=== PATIENT | female | born 1970 | race Caucasian/White ===

== ENCOUNTER → 2017-11-28 | Outpatient (CLI) | payer OTHER ==
--- NOTE | 2017-11-29 08:43 | MR ---
EXAMINATION TYPE: MR brain wo/w con DATE OF EXAM: 11/28/2017 COMPARISON: NONE HISTORY: Low Back Pain, MS Gadaovist TECHNIQUE: Multiplanar, multisequence images of the brain and brainstem is performed without and with IV contras t, utilizing 7.5 mL intravenous Gadavist . FINDINGS: Diffusion weighted images demonstrate no evidence of a recent infarct or other diffusion ab normality. There is no extra-axial fluid collection. Few scattered subcortical and periventricular white matter changes that are T2/IR hyperintense puncta te foci are seen within both supratentorial hemispheres. No infratentorial or spinal cord foci. There are at least 5 foci on the right and 3 foci on the left the largest on the right in the periventricu lar white matter in the frontal lobe measuring 4 mm on IR fat sat axial image 17 and the largest on t he left measuring 4 mm on image 17 as well in the left parietal lobe. The ventricular system and cis ternal spaces are normal in size and appearance. The brain volume is age appropriate. Midline structures demonstrate normal morphology. Incidental note is made of a small 3 mm pineal glan d cyst The craniocervical junction appears within normal limits. Post contrast images demonstrate n o abnormal enhancement. The dural venous sinuses appear patent. The visualized sinuses are clear and the globes are intact. No gross evidence of optic nerve enhancement. Although the major intracranial flow voids are maintained the basilar and right vertebral arteries are noted to be diminutive in lisa leidy. IMPRESSION: 1. Mild burden nonspecific white matter changes. These may represent demyelinating plaques is free of multiple sclerosis. No restricted diffusion or enhancement to indicate active demyelination. 2. Diminutive caliber of the basilar and right vertebral arteries, possibly congenital.
--- NOTE | 2017-11-29 08:51 | MR ---
EXAMINATION TYPE: MR lumbar spine wo con DATE OF EXAM: 11/28/2017 COMPARISON: NONE HISTORY: Low Back Pain, MS Gadaovist 7.5 TECHNIQUE: Multiplanar, multisequence images of the lumbar spine were acquired. The vertebral bodies of the lumbar spine maintain normal alignment and vertebral body heights. Bone m arrow signal is within normal limits. Conus medullary is has a normal appearance terminating at L1. P araspinal musculature is unremarkable. L1-L2: Normal disc appearance without desiccation. No herniation, protrusion or disc bulging. No ca nal stenosis is present. Foramina are patent bilaterally. L2-L3: There is a small broad-based disc bulge. No herniation, protrusion or disc bulging. No canal stenosis is present. Foramina are patent bilaterally. L3-L4: There is a small broad-based disc bulge. No herniation, protrusion or disc bulging. No canal stenosis is present. Foramina are patent bilaterally. L4-L5: A very small central disc protrusion/herniation superimposed upon a broad-based disc bulge wit h punctate right paracentral annular tear. No neural foraminal narrowing or spinal canal stenosis as a result. L5-S1: Normal disc appearance without desiccation. No herniation, protrusion or disc bulging. No ca nal stenosis is present. Foramina are patent bilaterally. IMPRESSION: 1. Very small central disc herniation superimposed on a broad-based disc bulge at L4-L5 without neura l foraminal narrowing or spinal canal stenosis. 2. Small broad-based disc bulges at L2-L4 without spinal canal stenosis or neural foraminal narrowing .
== END ==
LOC: RADMRIMAIN 20:10
PROVIDERS: ATTEND Psychiatry & Neurology Neurology
DX: M51.26 Other intervertebral disc displacement, lumbar region (principal); R90.89 Other abnormal findings on diagnostic imaging of central nervous system
CPT/HCPCS: 70553; 72148; A9581

== ENCOUNTER → 2017-12-01 | Outpatient (CLI) | payer OTHER ==
[2017-12-01 17:39] LABS: Basophils # (A) 0.1 k/uL (0-0.2); Basophils % (A) 1 %; Eosinophils # (A) 0.1 k/uL (0-0.7); Eosinophils % (A) 1 %; HCT 41.4 % (34.0-46.0); HGB 13.5 gm/dL (11.4-16.0); Lymphocytes # (A) 3.8 k/uL (1.0-4.8); Lymphocytes % (A) 37 %; MCH 30.2 pg (25.0-35.0); MCHC 32.6 g/dL (31.0-37.0); MCV 92.6 fL (80.0-100.0); Mean Platelet Volume 6.7; Monocytes # (A) 0.5 k/uL (0-1.0); Monocytes % (A) 5 %; Neutrophils # (A) 5.6 k/uL (1.3-7.7); Neutrophils % (A) 55 %; Platelet Count 395 k/uL (150-450); RBC 4.47 m/uL (3.80-5.40); RDW 12.9 % (11.5-15.5); WBC 10.2 k/uL (3.8-10.6)
[2017-12-01 17:48] LABS: ALT 27 U/L (9-52); AST 20 U/L (14-36); Albumin 4.5 g/dL (3.5-5.0); Alkaline Phosphatase 73 U/L (38-126); Anion Gap 10 mmol/L; Blood Urea Nitrogen 15 mg/dL (7-17); Calcium 9.7 mg/dL (8.4-10.2); Carbon Dioxide 29 mmol/L (22-30); Chloride 103 mmol/L (98-107); Glucose 111 mg/dL (74-99); Potassium 4.3 mmol/L (3.5-5.1); Sodium 142 mmol/L (137-145); Total Bilirubin 0.2 mg/dL (0.2-1.3); Total Protein 6.9 g/dL (6.3-8.2)
[2017-12-02 00:58] LABS: Rheumatoid Factor 7 IU/mL (0-15)
[2017-12-02 01:02] LABS: Vitamin D 25 Hydroxy 28.4 ng/mL (30.0-100.0)
== END | disposition home or self-care (01) ==
LOC: LABWHC1 16:37
PROVIDERS: ATTEND Nurse Practitioner Acute Care
DX: E55.9 Vitamin D deficiency, unspecified (principal); M35.3 Polymyalgia rheumatica; R41.3 Other amnesia
CPT/HCPCS: 36415; 80053; 82306; 82607; 85025; 86038; 86431

== ENCOUNTER → 2017-12-06 | Outpatient (CLI) | payer OTHER ==
[2017-12-08 13:38] LABS: IgG - CSF 2.8 mg/dL (0.0 - 3.4); IgG Synthesis Rate 4.61 mg/day (0.00 - 3.00); IgG/Albumin Index (CSF) 0.89 (0.00 - 0.77); Immunoglobulin G 631 mg/dL (700 - 1600)
== END | disposition home or self-care (01) ==
LOC: LABWHC1 15:21
PROVIDERS: ATTEND Psychiatry & Neurology Neurology
DX: R90.82 White matter disease, unspecified (principal)
CPT/HCPCS: 36415; 82040; 82042; 82784; 83873; 83916; 84157; 87476; 88108; 89050

== ENCOUNTER → 2018-04-04 | Outpatient (CLI) | payer OTHER | END | disposition home or self-care (01) | LOC: LABWHC1 14:33 | PROVIDERS: ATTEND Nurse Practitioner Acute Care | DX: G35 Multiple sclerosis (principal) | CPT/HCPCS: 36415; 86787 ==

== ENCOUNTER → 2018-05-22 | Outpatient (CLI) | payer OTHER ==
--- NOTE | 2018-05-22 13:38 | MR ---
EXAMINATION TYPE: MR brain wo/w con DATE OF EXAM: 05/22/2018 COMPARISON: 11/28/2017 HISTORY: MS TECHNIQUE: Multiplanar, multisequence images of the brain and brainstem is performed without and with IV contras t, utilizing 7.5 mL intravenous Gadavist . FINDINGS: Diffusion weighted images demonstrate no evidence of a recent infarct or other diffusion ab normality. There is no extra-axial fluid collection or significant white matter signal abnormality. The ventricular system and cisternal spaces are normal in size and appearance. The brain volume is age appropriate. Midline structures demonstrate normal morphology. Cerebellar tonsils are low-lying in position measur ing approximately 1 mm below the foramen magnum. Incidental note is made of a stable pineal gland cys t measuring 3 mm.. Post contrast images demonstrate no abnormal enhancement. The dural venous sinuse s appear patent. Changes of chronic sinusitis noted. White matter: There are approximately 7-10 focal areas of abnormal signal within the white matter scattered bilater ally. All measure less than 5 mm. Additional confluent ill-defined periventricular abnormal signal is stable. No callosal lesions. No lesions perpendicular to the ventricular system. No enhancing lesions. IMPRESSION: 1. Stable nonspecific white matter changes. No interval change in size, number or morphology of the l esions. No enhancing lesions.
== END | disposition home or self-care (01) ==
LOC: RADMRIMAIN 11:59
PROVIDERS: ATTEND Psychiatry & Neurology Neurology
DX: R90.82 White matter disease, unspecified (principal); G35 Multiple sclerosis; Z88.2 Allergy status to sulfonamides
CPT/HCPCS: 70553; A9581

== ENCOUNTER → 2018-08-30 | Outpatient (CLI) | payer OTHER ==
[2018-08-30 16:15] LABS: Basophils % (A) 0 %; Eosinophils # (A) 0.1 k/uL (0-0.7); Eosinophils % (A) 1 %; HCT 38.2 % (34.0-46.0); HGB 12.7 gm/dL (11.4-16.0); Lymphocytes # (A) 0.5 k/uL (1.0-4.8); Lymphocytes % (A) 8 %; MCH 31.4 pg (25.0-35.0); MCHC 33.2 g/dL (31.0-37.0); MCV 94.5 fL (80.0-100.0); Monocytes # (A) 0.5 k/uL (0-1.0); Monocytes % (A) 7 %; Neutrophils % (A) 81 %; Platelet Count 272 k/uL (150-450); RBC 4.04 m/uL (3.80-5.40); RDW 13.5 % (11.5-15.5); WBC 6.1 k/uL (3.8-10.6)
[2018-08-30 16:34] LABS: ALT 24 U/L (9-52); AST 21 U/L (14-36); Albumin 4.6 g/dL (3.5-5.0); Alkaline Phosphatase 81 U/L (38-126); Anion Gap 7 mmol/L; Blood Urea Nitrogen 10 mg/dL (7-17); Carbon Dioxide 24 mmol/L (22-30); Chloride 110 mmol/L (98-107); Glucose 97 mg/dL (74-99); Potassium 4.3 mmol/L (3.5-5.1); Sodium 141 mmol/L (137-145); Total Bilirubin 0.4 mg/dL (0.2-1.3); Total Protein 7.1 g/dL (6.3-8.2)
== END ==
LOC: LABWHC1 14:48
PROVIDERS: ATTEND Nurse Practitioner Acute Care
DX: E55.9 Vitamin D deficiency, unspecified (principal); G35 Multiple sclerosis; Z51.81 Encounter for therapeutic drug level monitoring
CPT/HCPCS: 36415; 80053; 82306; 85025

== ENCOUNTER → 2018-09-22 | Outpatient (CLI) | payer OTHER ==
[2018-09-22 15:59] LABS: Basophils % (A) 0 %; Eosinophils # (A) 0.2 k/uL (0-0.7); Eosinophils % (A) 5 %; HGB 12.8 gm/dL (11.4-16.0); Lymphocytes # (A) 0.4 k/uL (1.0-4.8); Lymphocytes % (A) 9 %; MCH 30.8 pg (25.0-35.0); MCHC 32.1 g/dL (31.0-37.0); MCV 95.9 fL (80.0-100.0); Mean Platelet Volume 6.5; Monocytes # (A) 0.5 k/uL (0-1.0); Monocytes % (A) 12 %; Neutrophils # (A) 2.9 k/uL (1.3-7.7); Neutrophils % (A) 70 %; Platelet Count 295 k/uL (150-450); RBC 4.17 m/uL (3.80-5.40); RDW 13.2 % (11.5-15.5); WBC 4.1 k/uL (3.8-10.6)
== END ==
LOC: LABWHC1 09:37
PROVIDERS: ATTEND Nurse Practitioner Acute Care
DX: Z51.81 Encounter for therapeutic drug level monitoring (principal); G35 Multiple sclerosis
CPT/HCPCS: 36415; 85025

== ENCOUNTER → 2018-10-16 | Outpatient (CLI) | payer OTHER ==
[2018-10-16 14:34] LABS: Basophils % (A) 0 %; Eosinophils # (A) 0.2 k/uL (0-0.7); Eosinophils % (A) 2 %; HCT 38.5 % (34.0-46.0); HGB 12.8 gm/dL (11.4-16.0); Lymphocytes # (A) 1.7 k/uL (1.0-4.8); Lymphocytes % (A) 24 %; MCH 31.1 pg (25.0-35.0); MCHC 33.3 g/dL (31.0-37.0); MCV 93.4 fL (80.0-100.0); Mean Platelet Volume 6.7; Monocytes # (A) 0.5 k/uL (0-1.0); Monocytes % (A) 8 %; Neutrophils # (A) 4.7 k/uL (1.3-7.7); Neutrophils % (A) 64 %; Platelet Count 293 k/uL (150-450); RBC 4.12 m/uL (3.80-5.40); RDW 12.8 % (11.5-15.5); WBC 7.3 k/uL (3.8-10.6)
== END | disposition home or self-care (01) ==
LOC: LABWHC1 13:51
PROVIDERS: ATTEND Nurse Practitioner Acute Care
DX: G35 Multiple sclerosis (principal)
CPT/HCPCS: 36415; 85025

== ENCOUNTER → 2018-11-30 | Outpatient (CLI) | payer OTHER ==
[2018-11-30 15:55] VITALS: BP 121/83; PULSE 80; RESP 18; TEMP 97.6; BMI 30.1
--- NOTE | 2018-11-30 16:33 | P.GSHP ---
History of Present Illness H&P Date: 11/30/18 Chief Complaint: breast cyst right Patient is a 48 year old white female diagnosed with multiple sclerosis 1 year ago. She was started on Gilenya which comprimised her immune system and this was stopped in September. The patient 1 week later developed bilateral eye styes. She also noted swelling in her right axilla. She has been treated with 4 courses of antibiotics. Keflex times two, augmentin, than a Z-parag wich she is taking now She also has swelling in her right suproclavicular area. She had two breast ultrasounds which showed right breast cyst. The ultrasound was done in October 2018, that ultrasound showed cyst, she than had a repeat ultrasound done at [facility] we are waiting for these results. She feels that the right axilla is more swollen than the left axilla. The patient is masses in her breast. She has no nipple discharge in her breast. She has not had any history of trauma or infection in her breast. She complains mostly of a sensation of swelling in the right axilla. The patient does smoke 1 pack per day. The patient is exposed to secondhand smoke via her fianc and her mother. The patient takes between 2-6 12 oz glasses of caffeniated beverages per day. She eats very little chocolate. Family history: 1. Mother: Skin cancer 2. Maternal grandmother: Leukemia 3. Maternal grandfather: Lung cancer 4. Paternal grandfather: Prostate cancer Hormonal History: menarche: 14 : 2, 2 children, breast fed: no, first born at 24 menopause: hysterectomy at 34 done for pre-cancer cells, still has ovaries BCP: 3 years hormones: none Past surgical history: 1. Hysterectomy 2. Cholecystectomy 3. Lasix eyes 4. Tonsils and adenoids 5. [place] teeth Medical history: 1. Multiple sclerosis 2. Immune compromise 3. Back pain 4. Questionable fibromyalgia Social history: Smoking: A pack per day for 30 years Alcohol: Occasional Drugs:negative - Constitutional Constitutional: Reports sweats, Denies chills, Denies fever - EENT Comment: eye styes Eyes: denies blurred vision, denies pain Ears: deny: decreased hearing, tinnitus Ears, nose, mouth and throat: Denies headache, Denies sore throat - Breasts Breasts: bilateral: as per HPI - Cardiovascular Cardiovascular: Reports shortness of breath, Denies chest pain - Respiratory Respiratory: Reports cough - Gastrointestinal Gastrointestinal: Denies abdominal pain, Denies diarrhea, Denies nausea, Denies vomiting - Genitourinary (Female) Genitourinary: Denies dysuria, Denies hematuria - Menstruation Menstruation: Reports post hysterectomy - Musculoskeletal Musculoskeletal: Reports myalgias - Integumentary Integumentary: Denies pruritus, Denies rash - Neurological Neurological: Reports numbness, Reports weakness - Psychiatric Comment: panic attacks Psychiatric: Reports anxiety, Reports depression - Endocrine Comment: gain 30 pounds Endocrine: Reports fatigue, Reports weight change - Hematologic/Lymphatic Comment: none - Allergic/Immunologic Allergic/Immunologic: Reports seasonal allergies Past Medical History Past Medical History: GERD/Reflux Additional Past Medical History / Comment(s): INTERMITTENT ABD PAIN INCREASED PAIN AFTER EATING WITH N/V,CONSTIPATION,ABRASION TO LT ELBOW AND LT KNEE,HX BACK PAIN-N/T TO DEWEY FINGERS AND LEGS,SOB,LT EYE DILATES MORE THAN RT EYE. MS History of Any Multi-Drug Resistant Organisms: None Reported Past Surgical History: Breast Surgery, Hysterectomy, Tonsillectomy Additional Past Surgical History / Comment(s): BREAST BX,LASIK DEWEY EYES Past Anesthesia/Blood Transfusion Reactions: No Reported Reaction Additional Psychological History / Comment(s): CLAUSTROPHOBIC Smoking Status: Current every day smoker Past Alcohol Use History: None Reported Additional Past Alcohol Use History / Comment(s): STARTED SMOKING AT AGE 17,1PPD Past Drug Use History: None Reported - Past Family History Mother Family Medical History: Cancer Additional Family Medical History / Comment(s): SKIN Father Additional Family Medical History / Comment(s): AT AGE 44 IN MVA Medications and Allergies Home Medications Medication Instructions Recorded Confirmed Type Celecoxib [CeleBREX] 200 mg PO BID PRN 10/11/16 10/13/16 History Cyclobenzaprine [Flexeril] 10 mg PO TID PRN 10/11/16 10/13/16 History HYDROcodone/APAP 10-325MG [[place] 1 tab PO Q6H PRN 10/11/16 10/13/16 History 10-325] Methocarbamol [Robaxin] 750 mg PO TID PRN 10/11/16 10/13/16 History Polyethylene Glycol 3350 [Miralax] 17 gm PO DAILY PRN 10/11/16 10/13/16 History Pregabalin [Lyrica] 150 mg PO HS PRN 10/11/16 10/13/16 History Pregabalin [Lyrica] 150 mg PO QAM 10/11/16 10/13/16 History Ranitidine HCl [Zantac] 150 mg PO BID PRN 10/11/16 10/13/16 History HYDROcodone/APAP 7.5-325MG [[place] 1 each PO Q4H PRN #60 tab 10/13/16 Rx 7.5] Allergies Allergy/AdvReac Type Severity Reaction Status Date / Time adhesive tape Allergy BLISTERS Verified 10/11/16 13:25 SKIN bacitracin Allergy BLISTERS Verified 10/11/16 13:25 [From Neosporin SKIN ([id number])] neomycin Allergy BLISTERS Verified 10/11/16 13:25 [From Neosporin SKIN ([id number])] polymyxin B Allergy BLISTERS Verified 10/11/16 13:25 [From Neosporin SKIN ([id number])] venom-honey bee Allergy Anaphylaxis Verified 10/11/16 13:25 [bee venom (honey bee)] Surgical - Exam Vital Signs Temp Pulse Resp BP Pulse Ox 97.6 F 80 18 121/83 98 11/30/18 15:44 11/30/18 15:44 11/30/18 15:44 11/30/18 15:44 11/30/18 15:44 BMI 30.1 - General well developed, well nourished, no distress - Eyes normal ocular movement - ENT normal pinna, no hearing loss - Neck no masses, trachea midline - Respiratory normal respiratory effort, clear to auscultation - Cardiovascular Rhythm: regular Heart Sounds: normal: S1, S2 - Abdomen Abdomen: soft - Integumentary skin lesion mid back near bra line - Neurologic no disoriented, no combative - Musculoskeletal normal gait - Psychiatric oriented to time, oriented to person, oriented to place, speech is normal, memory intact Breast examination: Right breast: Multi-positional exam no dominant masses or nodules of concern, right breast is slightly larger than left breast Right axilla: No discrete adenopathy of concern Left breast: Multi-positional exam no dominant masses or nodules of concern Left axilla: No adenopathy of concern Results Results of right breast ultrasound and right axillary ultrasound reviewed Bilateral mammogram from June 2018 results pending Assessment and Plan Assessment: Impression: 1. Fibrocystic breast changes 2. No discrete abnormality in the axilla noted 3. Skin lesion at near bra line of the torso 4. Possible sclerosis 5. Back pain Plan: 1. Obtain results of mammogram from June 2018 2. Close surveillance of axilla and breast with repeat examination in 3-4 months 3. Excision of skin lesion posterior torso at bra line CC: Dr. Hein
== END ==
LOC: WWCWWP 15:08
PROVIDERS: ATTEND Surgery
DX: Z53.9 Procedure and treatment not carried out, unspecified reason (principal)

== ENCOUNTER → 2018-12-14 | Outpatient (CLI) | payer OTHER ==
[2018-12-14 11:02] VITALS: BP 135/85; PULSE 89; RESP 18; TEMP 97.4; BMI 30.9
--- NOTE | 2018-12-14 11:21 | P.PN ---
Subjective Progress Note Date: 12/14/18 Ping is a 48 year old white female with a complaint of asymmetry of her right breast. She has had bilateral mammograms which were felt to be benign in June 2018, and recently on November 30 and axillary ultrasound on the right which was felt to be benign. She does still complain of some fullness under the breast extending around to her back. She has noted that she has gained approximately 5-10 pounds in the last several months. Objective - Vital Signs Vital signs: Vital Signs Temp 97.4 F L 12/14/18 10:56 Pulse 89 12/14/18 10:56 Resp 18 12/14/18 10:56 BP 135/85 12/14/18 10:56 Pulse Ox 99 12/14/18 10:56 Intake & Output 12/13/18 12/14/18 12/14/18 18:59 06:59 18:59 Weight 79.379 kg - Constitutional General appearance: Present: obese - EENT Eyes: Present: EOMI ENT: Present: hearing grossly normal - Neck Neck: Present: normal ROM - Respiratory Respiratory: bilateral: CTA - Cardiovascular Rhythm: regular Heart sounds: normal: S1, S2 - Integumentary Integumentary Comment(s): The patient on examination her right breast is slightly larger than the left breast. In addition the soft tissues under the right breast are slightly more prominent than on the left side and extending posteriorly towards her back. No discrete dominant mass or nodule is palpated. No adenopathy of concern is noted in the right or left axilla Recent breast exam did not reveal any lesions of concern in either breast Assessment and Plan Assessment: Impression: 1. Asymmetric breast, right larger than left 2. Prominent soft tissue in the lateral aspect of the chest wall extending posteriorly which appears to be non-worrisome 3. Multiple Sclerosis 4. Arthritis in her lower back/SI joint pain 5. Dark nevus back Plan: 1. Close surveillance with repeat position exam in 3 months time 2. Excision of dark nevus per primary care doctor 3. Medical management of medical conditions Discussion with the patient regarding the fact that she has had weight change, her breasts are asymmetric, and she has some postural changes which may make the lateral right chest wall tissues seem more prominent than the left. At this time there does not appear to be anything worrisome which would warrant an interventional biopsy. We've discussed possibility of a CAT scan but would prefer not to have radiation exposure. She is therefore going to follow this closely if anything changes she will call me immediately and I will see her again in 3 months time. Cc: Dr. Hein
== END ==
LOC: WWCWWP 10:07
PROVIDERS: ATTEND Surgery
DX: Z53.9 Procedure and treatment not carried out, unspecified reason (principal)

== ENCOUNTER → 2019-03-15 | Outpatient (CLI) | payer OTHER ==
[2019-03-15 14:24] VITALS: BP 118/66; PULSE 79; RESP 16; TEMP 96.6; BMI 31.8
--- NOTE | 2019-03-15 14:59 | P.PN ---
Subjective Progress Note Date: 03/15/19 Principal diagnosis: breast tenderness The patient is a 48-year-old white female diagnosed with multiple sclerosis approximately a year and a half ago. She was started on Gilenya which compromised her immune system and this subsequently was stopped in September 2018. The patient 1 week later developed bilateral iced eyes. She also noticed swelling in her right axilla. She had been treated with 4 courses of antibiotics. She was treated with Keflex 2, Augmentin, and then a Z-Ean which did not cause resolution of the swelling or pain. It did help with the stys in her eyes but did not help with the swelling in her axilla. She had 2 breast ultrasounds which showed only right breast cyst. The most recent radiographs were June 2018. This was a bilateral mammogram which was felt to be benign. She then had ultrasounds performed, the last ultrasound was of her right axilla and was sent in November 2018. No discrete solid or cystic areas were identified. The swelling has not increased since she was last seen. The area is tender with palpation but otherwise is not tender. The patient is not complaining of any masses or lumps in her breasts. She has no nipple discharge or skin changes of concern. The patient smokes 1 pack per day. She is also exposed to secondhand smoke via her fianc and her mother. She drinks 1-3 cups of coffee per day. She has decreased her pop intake from 3-6 glasses per day to 1-2 glasses per week. She does not large quantities of chocolate. She has not noted any difference in cutting down on caffeine in the breast pain. Family History: 1. Mother: Skin cancer 2. Maternal grandmother: Leukemia 3. Maternal grandfather: Lung cancer 4. Paternal grandfather: Prostate cancer Hormonal history: Menarche: 14 Pregnancies: 2, 2 children, breast-fed, negative first child born at 24 No pus: Hysterectomy at 32 to done for precancerous cells still has ovaries control pills 15 years Hormones: Negative Past surgical history: 1. Hysterectomy 2. Cholecystectomy 3. LASIK eye surgery 4. Tonsils and adenoids 5. [place] teeth Medical history: 1. Multiple sclerosis 2. Immune compromise 3. Back pain 4. Questionable fibromyalgia Social history: Smoke: 1 pack per day for 30 years Alcohol: Occasional Drugs: Negative Review of systems: HEENT recent cystitis in her eyes Lungs: Smoker Heart: Negative GI: Reflux : Status post hysterectomy for precancerous cells Musculoskeletal: Myalgias Recent diagnosis of multiple sclerosis Hematologic: none Objective - Vital Signs Vital signs: Vital Signs Temp 96.6 F L 03/15/19 14:18 Pulse 79 03/15/19 14:18 Resp 16 03/15/19 14:18 BP 118/66 03/15/19 14:18 Pulse Ox 96 03/15/19 14:18 Intake & Output 03/14/19 03/15/19 03/15/19 18:59 06:59 18:59 Weight 81.647 kg - Exam BMI 31.9 - Constitutional General appearance: Present: obese - EENT Eyes: Present: EOMI ENT: Present: hearing grossly normal - Neck Neck: Present: normal ROM - Respiratory Respiratory: bilateral: CTA - Cardiovascular Rhythm: regular Heart sounds: normal: S1, S2 - Gastrointestinal General gastrointestinal: Present: soft - Integumentary Integumentary: Present: normal turgor - Musculoskeletal Musculoskeletal: Present: gait normal - Psychiatric Psychiatric: Present: A&O x's 3, appropriate affect, intact judgment & insight - Additional findings Additional findings: breast exam: right breast: Multi-positional exam no dominant masses or nodules of concern, there is tenderness to palpation behind the right nipple areolar complex, the right breast is asymmetric and slightly larger than the left breast with some increased right axillary breast tissue as well Right axilla: No adenopathy of concern Left breast: Multi-positional exam fibrocystic changes, no dominant masses or nodules of concern Left axilla: No adenopathy of concern - Imaging and Cardiology The patient's mammogram from June and her most recent ultrasound which was from November 2018 were reviewed Assessment and Plan Assessment: Impression: 1. Fibrocystic breast changes 2. Skin lesion near her bra line was removed by Dr. Hein 3. Multiple sclerosis 4. Back pain/SI joint pain 5. Pain right axillary area 6. Patient is perimenopausal Plan: 1. Patient is getting an MRI related to her back pain march, to see if it can also do an MRI of the right axillary area to look at the muscles in this region and chest wall/ 2. We have again discussed stopping caffeinated beverages and nicotine the patient will consider that she has done well with decreasing the amount of caffeinated beverages she drinks 3. [place] oil 4. breast pain may be related to hormonal changes CC: Dr. Hein Repeat bilateral mammogram in June with physician exam at that time.
== END ==
LOC: WWCWWP 13:52
PROVIDERS: ATTEND Surgery
DX: Z53.9 Procedure and treatment not carried out, unspecified reason (principal)

== ENCOUNTER → 2019-03-22 | Outpatient (CLI) | payer OTHER ==
--- NOTE | 2019-03-22 14:40 | MR ---
EXAMINATION TYPE: MR lumbar spine wo con DATE OF EXAM: 03/22/2019 COMPARISON: None HISTORY: Low Back Pain TECHNIQUE: Multiplanar, multisequence images of the lumbar spine were acquired. TECHNIQUE: Multilevel disc desiccation is seen. Bone marrow signal is within normal limits. Vertebral body heights and alignment are maintained of the lumbar spine. Conus medullaris is unremarkable term inating at L1. No paraspinal masses seen. Mild atrophy of the left paraspinal muscles at L5-S1. Small synovial cyst of the right L5 facet. L1-L2: Disc desiccation is seen without focal disc herniation. No spinal canal stenosis or neural for aminal narrowing. L2-L3: There is a small broad-based disc bulge without spinal canal stenosis nor neural foraminal kathia rowing. L3-L4: There is a small broad-based disc bulge and mild facet arthropathy without spinal canal stenos is nor neural foraminal narrowing. L4-L5: There is facet arthropathy and ligamentum flavum buckling as well as a broad-based disc bulge resulting in bilateral neural foraminal narrowing without spinal canal stenosis. L5-S1: There is a broad-based disc bulge and mild facet arthropathy without spinal canal stenosis nor neural foraminal narrowing. IMPRESSION: 1. No evidence of vertebral body height loss or malalignment of the lumbar spine. 2. Mild multilevel degenerative disc disease of the lumbar spine resulting in mild bilateral neural f oraminal narrowing at L4-5. No focal disc herniation or spinal canal stenosis. 3. Mild paraspinal atrophy on the left at L5-S1.
== END ==
LOC: RADMRIMAIN 12:57
PROVIDERS: ATTEND Anesthesiology Pain Medicine
DX: M48.061 Spinal stenosis, lumbar region without neurogenic claudication (principal); M51.36 Other intervertebral disc degeneration, lumbar region; M48.8X7 Other specified spondylopathies, lumbosacral region
CPT/HCPCS: 72148

== ENCOUNTER → 2019-04-23 | Outpatient (CLI) | payer OTHER ==
[2019-04-23 16:15] LABS: Basophils % (A) 0 %; Eosinophils # (A) 0.2 k/uL (0-0.7); Eosinophils % (A) 3 %; HCT 40.8 % (34.0-46.0); HGB 13.2 gm/dL (11.4-16.0); Lymphocytes # (A) 3.1 k/uL (1.0-4.8); Lymphocytes % (A) 34 %; MCH 28.9 pg (25.0-35.0); MCHC 32.2 g/dL (31.0-37.0); MCV 89.7 fL (80.0-100.0); Mean Platelet Volume 7.1; Monocytes # (A) 0.5 k/uL (0-1.0); Monocytes % (A) 6 %; Neutrophils # (A) 4.8 k/uL (1.3-7.7); Neutrophils % (A) 54 %; Platelet Count 314 k/uL (150-450); RBC 4.55 m/uL (3.80-5.40); RDW 14.1 % (11.5-15.5); WBC 8.9 k/uL (3.8-10.6)
[2019-04-24 01:32] LABS: Vitamin D 25 Hydroxy 24.1 ng/mL (30.0-100.0)
[2019-04-24 01:55] LABS: Hepatitis A Antibody IgM Non-Reactive (Non-Reactive); Hepatitis B Core IgM Non-Reactive (Non-Reactive)
[2019-04-24 02:07] LABS: Albumin/Globulin Ratio 2.94 (1.60-3.17); Anion Gap 6.8 mmol/L (4.00-12.00); Calcium 9.9 mg/dL (8.7-10.3); Carbon Dioxide 25.2 mmol/L (21.6-31.8); Globulin 1.7 g/dL (1.6-3.3); Potassium 4.4 mmol/L (3.5-5.5); Total Bilirubin 0.3 mg/dL (0.3-1.2); Total Protein 6.7 g/dL (6.2-8.2)
== END | disposition home or self-care (01) ==
LOC: LABWHC1 15:35
PROVIDERS: ATTEND Nurse Practitioner Acute Care
DX: G35 Multiple sclerosis (principal); E55.9 Vitamin D deficiency, unspecified
CPT/HCPCS: 36415; 80053; 80074; 82306; 85025; 86704

== ENCOUNTER → 2019-08-20 | Outpatient (CLI) | payer OTHER ==
--- NOTE | 2019-08-22 10:22 | MM ---
Reason for exam: screening (asymptomatic). Last mammogram was performed 1 year and 1 month ago. History: Family history of breast cancer in maternal cousin at age 62. Benign ultrasound-guided core biopsy of the left breast, 2005. Physical Findings: A clinical breast exam by your physician is recommended on an annual basis and results should be correlated with mammographic findings. MG Screening Mammo w CAD Bilateral CC and MLO view(s) were taken. Prior study comparison: July 20, 2018, mammogram, performed at [facility]. March 10, 2016, bilateral MG diagnostic mammo w CAD [facility]. September 11, 2015, mammogram, performed at [facility]. The breast tissue is heterogeneously dense. This may lower the sensitivity of mammography. Previous mammotome biopsy in the left breast. No significant changes when compared with prior studies. ASSESSMENT: Benign, BI-RAD 2 RECOMMENDATION: Routine screening mammogram of both breasts in 1 year.
== END | disposition home or self-care (01) ==
LOC: RADMAMWWP 13:05
PROVIDERS: ATTEND Internal Medicine
DX: Z12.31 Encounter for screening mammogram for malignant neoplasm of breast (principal)
CPT/HCPCS: 77067

== ENCOUNTER 2019-09-03 09:09 | Day surgery (SDC) | payer OTHER ==
[2019-08-30 10:46] VITALS: BMI 31.8
[~2019-09-03 09:09] MED LIST: LACTATED RINGERS 1,000 ML IV SCH; LIDOCAINE 1% 20 ML VIAL (10MG/ML) FOR IV START INTRADERMA PRN
[2019-09-03 09:37] VITALS: RESP 18; TEMP 98.1
[2019-09-03] MEDS ORDERED: PROPOFOL 10 MG/ML 20 ML VIAL IV ONE (09:43)
[2019-09-03] MEDS ORDERED: LIDOCAINE 1% INJ 10MG/ML (20 ML MDV) ONE (09:43)
[2019-09-03] MEDS ORDERED: MIDAZOLAM 2 MG/2 ML VIAL ONE (09:43)
--- NOTE | 2019-09-03 10:43 | P.PCN ---
Date of Procedure: 09/03/19 Description of Procedure: Brief history: Patient is a pleasant scheduled for an elective upper endoscopy as well as colonoscopy as a part of evaluation of epigastric pain and a change in bowel habits. No family history of colon cancer. Procedure performed: Esophagogastroduodenoscopy with biopsy Colonoscopy with polypectomy Estimated blood loss: Minimal. Preoperative diagnosis: Epigastric abdominal pain, change in bowel habits Anesthesia: MAC Procedure: After informed consent was obtained from the patient was brought into the endoscopy unit and IV sedation was administered by anesthesia under continuous monitoring. Initially upper endoscopy was done. The Olympus GF 190 video endo scope was inserted inserted into the mouth and esophagus intubated without any difficulty and was gradually advanced into the stomach and duodenum and carefully examined. The bulb and second part of the duodenum appeared normal, With biopsies taken. The scope was then withdrawn into the stomach adequately insufflated with air and upon careful examination the antrum and body, cardia and fundus appeared normal, Except for some mild scattered erythema in the antrum and body suggestive of mild gastritis with biopsies taken. The scope was then withdrawn into the esophagus. The GE junction was located at 38 cm to the incisors, with biopsies of the GE junction taken. It appeared regular with no erythema erosions or ulcerations. Rest of the esophagus appeared normal. Patient tolerated the procedure well. At this time the patient continued to remain sedation. Initial digital rectal examination was normal. Olympus CF 190 video colonoscope was then inserted into the rectum , however due to a tortuous sigmoid the scope was removed and replaced with a pediatric scope which was inserted into the rectum and gradually advanced to the cecum without any difficulty. Careful examination was performed as the scope was gradually being withdrawn. The prep was excellent. The cecum, ascending colon, transverse colon, descending colon, sigmoid colon and rectum appeared normal, Except for a diminutive sessile 2 mm sigmoid polyp removed with cold forcep polypectomy. Retroflexion was performed in the rectum and no lesions were noted, Low-grade internal hemorrhoids noted. Patient tolerated the procedure well. Impression: 1. Mild gastritis antrum and body, biopsied. Biopsies of the duodenum and GE junction. 2. Tortuous sigmoid colon, pediatric scope used to successfully reach the cecum. Diminutive 2 mm sigmoid polyp removed with cold forcep polypectomy. Otherwise normal-appearing colon from rectum to cecum. Recommendations: Findings of this examination were discussed with the patient as well as Her family. Await biopsy results. Anticipate repeat colonoscopy in 5-10 years pending pathology from polypectomy. Follow-up in gastroenterology clinic as previously scheduled, for the titration of medications.
[2019-09-03 11:01] VITALS: BP 123/75; PULSE 77
== END 2019-09-03 11:31 | disposition home or self-care (01) ==
LOC: ORWHC2ENDO 09:09
PROVIDERS: ATTEND Internal Medicine
DX: K20.9 Esophagitis, unspecified (principal); K63.5 Polyp of colon; K29.50 Unspecified chronic gastritis without bleeding; Q43.8 Other specified congenital malformations of intestine; K64.8 Other hemorrhoids; R11.2 Nausea with vomiting, unspecified; K59.00 Constipation, unspecified; K21.9 Gastro-esophageal reflux disease without esophagitis; G35 Multiple sclerosis; F17.200 Nicotine dependence, unspecified, uncomplicated; Z90.49 Acquired absence of other specified parts of digestive tract; Z90.710 Acquired absence of both cervix and uterus; Z79.891 Long term (current) use of opiate analgesic; Z79.899 Other long term (current) drug therapy; Z91.030 Bee allergy status; Z88.2 Allergy status to sulfonamides; Z88.8 Allergy status to other drugs, medicaments and biological substances; Z91.09 Other allergy status, other than to drugs and biological substances
CPT/HCPCS: 88305; 45380; 43239; J2250; J2001; J2704

== ENCOUNTER → 2020-04-08 | Outpatient (CLI) | payer OTHER ==
--- NOTE | 2020-04-08 14:57 | XR ---
EXAMINATION TYPE: XR wrist complete LT DATE OF EXAM: 04/08/2020 CLINICAL HISTORY: Pain after strain injury. TECHNIQUE: Frontal, lateral, and oblique images of the left wrist are obtained. COMPARISON: None FINDINGS: There is no acute fracture/dislocation evident in the left wrist. The joint spaces in the left wrist appear within normal limits. The overlying soft tissue appears unremarkable. IMPRESSION: There is no acute fracture or dislocation in the left wrist.
== END | disposition home or self-care (01) ==
LOC: RADXRYALE 14:42
PROVIDERS: ATTEND Internal Medicine
DX: M25.532 Pain in left wrist (principal)

== ENCOUNTER → 2020-09-03 | Outpatient (CLI) | payer OTHER ==
--- NOTE | 2020-09-03 14:47 | XR ---
EXAMINATION TYPE: XR chest 2V DATE OF EXAM: 09/03/2020 COMPARISON: NONE HISTORY: Chest pain TECHNIQUE: Frontal and lateral views of the chest are obtained. FINDINGS: There is no focal air space opacity. No evidence for pneumothorax. No pleural effusion. The cardiac silhouette size is within normal limits. The osseous structures are grossly intact. IMPRESSION: 1. No acute cardiopulmonary process.
== END | disposition home or self-care (01) ==
LOC: LABWHC1 14:04
PROVIDERS: ATTEND Internal Medicine
DX: R05 Cough (principal)
CPT/HCPCS: 71046; U0003; C9803

== ENCOUNTER → 2021-11-16 | Outpatient (CLI) | payer OTHER ==
--- NOTE | 2021-11-18 11:25 | MM ---
Reason for exam: screening (asymptomatic). Last mammogram was performed 2 years and 3 months ago. History: Benign ultrasound-guided core biopsy of the left breast, 2005. Physical Findings: A clinical breast exam by your physician is recommended on an annual basis and results should be correlated with mammographic findings. MG 3D Screening Mammo W/Cad Bilateral CC and MLO view(s) were taken. Prior study comparison: August 20, 2019, bilateral MG screening mammo w CAD. July 20, 2018, mammogram, performed at [facility]. There are scattered fibroglandular densities. Previous mammotome biopsy in the left breast. No significant changes when compared with prior studies. ASSESSMENT: Negative, BI-RAD 1 RECOMMENDATION: Routine screening mammogram of both breasts in 1 year.
== END | disposition home or self-care (01) ==
LOC: RADMAMWWP 15:15
PROVIDERS: ATTEND Internal Medicine
DX: Z12.31 Encounter for screening mammogram for malignant neoplasm of breast (principal)
CPT/HCPCS: 77063; 77067

== ENCOUNTER → 2023-03-24 | Outpatient (CLI) | payer OTHER ==
--- NOTE | 2023-03-24 11:45 | P.GSHP ---
History of Present Illness H&P Date: 03/24/23 Chief Complaint: abnormal left breast mammogram Ping is a 52 year old white female seen in consultation for Dr. Hein regarding a stero biopsy of the left breast. This was done on 3322 and revealed fibroadenoma/fibroadenomatoid hyperplasia with calcifications and background fibrocystic changes. This was felt to be benign specific. The x- rays were reviewed with radiology. she underwent a bilateral screening mammogram. This led to special views of the left breast and a diagnostic ultrasound of the right breast on 01-11-23. The ultrasound of the right breast did not show any specific lesions of concern, the mammogram of the left breast revealed calcifications of concern and a core biopsy was recommended. Stereotactic core biopsy was performed of the left breast on 01-21-23. The patient is complaining of right axillary fullness which has increased over the last several years. She is not complaining of pain in this area. She has not had any recent trauma or infection in this area. She has never had any open surgery on either of her breasts. She has had 2 stereotactic core biopsies on the left breast. These have all been benign. Caffeine: 2 cups coffee/day Nicotine: 1 PPD/ 35 years BCP: about 20 years chocolate: weekly Family history: Mother: Skin cancer Maternal grandmother: Leukemia Paternal grandfather: Lung cancer Paternal grandfather: Prostate cancer maternal aunt: melanoma Hormonal history: Menarche: 14 breast fed: Negative First child born at 24 Menopause: Hysterectomy at 34 done for precancerous cells still has her ovaries control pills: 3 years Hormones: Negative Surgical history: Hysterectomy Cholecystectomy Lasix enteritis Tonsil and adenoids With some teeth left breast core biopsy twice Medical history: Multiple sclerosis Immunocompromise Back pain Questionable fibromyalgia Social history: Smoking one pack per day > 30 years Alcohol: Occasional Drugs: Negative - Constitutional Constitutional: Denies chills, Denies fever - EENT Eyes: bilateral blurred vision Ears: deny: decreased hearing, tinnitus Ears, nose, mouth and throat: Reports headache - Breasts Breasts: bilateral: as per HPI - Cardiovascular Cardiovascular: Reports shortness of breath, Denies chest pain - Respiratory Respiratory: Denies cough, Denies 7 - Gastrointestinal Gastrointestinal: Reports constipation, Denies abdominal pain, Denies diarrhea, Denies nausea, Denies vomiting - Genitourinary (Female) Genitourinary: Denies dysuria, Denies hematuria - Menstruation Menstruation: Reports post hysterectomy - Musculoskeletal Musculoskeletal: Reports myalgias - Integumentary Integumentary: Denies pruritus, Denies rash - Neurological Neurological: Reports numbness, Reports weakness - Psychiatric Psychiatric: Reports anxiety, Reports depression - Endocrine Endocrine: Denies fatigue - Hematologic/Lymphatic Comment: none - Allergic/Immunologic Allergic/Immunologic: Reports seasonal allergies Past Medical History Past Medical History: GERD/Reflux, Musculoskeletal Disorder Additional Past Medical History / Comment(s): LT EYE DILATES MORE THAN RT EYE, MS. Constipation. HX Brain aneurysm. Chronic back pain History of Any Multi-Drug Resistant Organisms: None Reported Past Surgical History: Adenoidectomy, Breast Surgery, Cholecystectomy, Hysterectomy, Tonsillectomy Additional Past Surgical History / Comment(s): benign left BREAST BX, LASIK DEWEY EYES. Surgery for brain aneurysym Past Anesthesia/Blood Transfusion Reactions: No Reported Reaction Past Psychological History: Anxiety, Depression Additional Psychological History / Comment(s): CLAUSTROPHOBIC Smoking Status: Current every day smoker Past Alcohol Use History: Rare Additional Past Alcohol Use History / Comment(s): 1PPD since age 17 Past Drug Use History: None Reported Additional Drug Use History / Comment(s): CBD oil occasional, instructed to hold 24 hrs prior to procedure - Past Family History Mother Family Medical History: Cancer Additional Family Medical History / Comment(s): SKIN Father Additional Family Medical History / Comment(s): AT AGE 44 [facility] Medications and Allergies Home Medications Medication Instructions Recorded Confirmed Type Pregabalin [Lyrica] 150 mg PO BID 10/11/16 01/21/23 History modafiniL [Provigil] 100 mg PO BID 12/14/18 01/21/23 History HYDROcodone/APAP 7.5-325MG [[place] 1 each PO TID 03/15/19 01/21/23 History 7.5] Omeprazole 20 mg PO DAILY 03/15/19 01/21/23 History Ascorbic Acid [Vitamin C] 500 mg PO DAILY 08/30/19 01/21/23 History Cetirizine HCl [Zyrtec] 10 mg PO DAILY PRN 08/30/19 01/21/23 History Cholecalciferol (Vitamin D3) 2,000 unit PO DAILY 08/30/19 01/21/23 History [Vitamin D3] EPINEPHrine (Auto Inject) [Epipen] 1 applic SQ DIRECTED PRN 08/30/19 01/21/23 History Infusion For Ms 1 appful IV Q180D 08/30/19 01/21/23 History Aspirin [[place] Aspirin EC] 81 mg PO DAILY 01/12/23 01/21/23 History Baclofen 10 mg PO BID 01/12/23 01/21/23 History buPROPion SR [Wellbutrin SR] 100 mg PO DAILY 01/12/23 01/21/23 History traMADol HCL [traMADol HCL ER] 300 mg PO DAILY 01/12/23 01/21/23 History Allergies Allergy/AdvReac Type Severity Reaction Status Date / Time adhesive tape Allergy BLISTERS Verified 01/21/23 07:32 SKIN bacitracin Allergy BLISTERS Verified 01/21/23 07:32 [From Neosporin SKIN ([id number])] neomycin Allergy BLISTERS Verified 01/21/23 07:32 [From Neosporin SKIN ([id number])] polymyxin B Allergy BLISTERS Verified 01/21/23 07:32 [From Neosporin SKIN ([id number])] sulfamethoxazole Allergy Itching Verified 01/21/23 07:32 [From Bactrim] trimethoprim [From Bactrim] Allergy Itching Verified 01/21/23 07:32 venom-honey bee Allergy Anaphylaxis Verified 01/21/23 07:32 [bee venom (honey bee)] Surgical - Exam - General moderate distress - Eyes normal ocular movement - Neck trachea midline - Respiratory normal respiratory effort - Cardiovascular Rhythm: regular Heart Sounds: normal: S1, S2 - Abdomen Abdomen: soft, non tender, no guarding, no rigid, no rebound - Integumentary normal turgor - Neurologic no disoriented, no combative - Musculoskeletal normal gait - Psychiatric oriented to time, oriented to person, oriented to place, speech is normal, memory intact Breast Exam: BRA: 40C/D inspection: bilateral grade 2 ptosis, asymmetry with the right breast being larger than the left breast palpation: right breast: Multiple positional exam fibrocystic changes no dominant masses or nodules of concern, the right breast is larger than the left breast Right axilla: No adenopathy of concern Left breast: Multi-positional exam fibrocystic changes no dominant masses or nodules of concern; stereo biopsy site clean and dry Left axilla: No adenopathy of concern No cervical or groin adenopathy of concern The spleen and liver are not enlarged Results Mammogram reviewed with radiology, left breast stereotactic core biopsy results reviewed these are benign No radiographic lesions of concern in the right breast or axilla Assessment and Plan Assessment: Impression: benign concordant left breast stero biopsy asymmetry of the breast No discrete masses or lumps in either breast or either axilla Plan: I've encouraged the patient to stop smoking this may decrease inflammatory processes through her body Nothing on examination today radiographically or on physical exam which would warrant interventional biopsy Repeat examination in 6 months with patient a call sooner if any questions or concerns Cc: Dr. Hein
[2023-03-24 12:53] VITALS: BP 173/80; PULSE 75; RESP 17; TEMP 97.8
== END ==
LOC: WWCWWP 11:08
PROVIDERS: ATTEND Surgery
DX: Z85.3 Personal history of malignant neoplasm of breast (principal); F17.210 Nicotine dependence, cigarettes, uncomplicated; G35 Multiple sclerosis; G89.29 Other chronic pain; K21.9 Gastro-esophageal reflux disease without esophagitis; N64.89 Other specified disorders of breast; Z79.82 Long term (current) use of aspirin; Z88.1 Allergy status to other antibiotic agents; Z88.2 Allergy status to sulfonamides; Z90.49 Acquired absence of other specified parts of digestive tract; Z91.030 Bee allergy status; Z91.048 Other nonmedicinal substance allergy status

== ENCOUNTER → 2023-09-14 | Outpatient (CLI) | payer OTHER ==
--- NOTE | 2023-09-14 13:27 | MM ---
Reason for Exam: Follow-up at short interval from prior study. Last screening mammogram was performed 8 month(s) ago. Patient History: Menarche at age 14. First Full-Term at age 24. Hysterectomy at age 34. Perimenopausal. 01/21/2023, Benign MG stereo VAD BX LT on the left side. 2005, Benign Ultrasound-Guided Core Biopsy on the left side. Risk Values: Harriet 5 year model risk: 1.3%. NCI Lifetime model risk: 11.8%. Prior Study Comparison: 11/16/2021 Bilateral Screening Mammogram, [facility]. 01/05/2023 Bilateral MG 3D screening mammo w/cad, [facility]. 01/11/2023 Left MG 3D work up w/cad LT, [facility]. Tissue Density: Left: There are scattered fibroglandular densities. Findings: Analyzed By CAD. Pattern appears stable. Core markers are within the left breast. No significant interval change is evident.. No suspicious groups of microcalcifications, spiculated or lobular masses, architectural distortion or other secondary signs of malignancy are mammographically apparent. Overall Assessment: Benign, BI-RAD 2 Management: Screening Mammogram of both breasts in 6 months. A negative mammogram report should not preclude additional follow up of suspicious palpable abnormalities. Patient should continue monthly self breast exam. A clinical breast exam by your physician is recommended on an annual basis and results should be correlated with mammographic findings. Electronically signed and approved by: Alejo Nielsen D.O. Radiologis
== END | disposition home or self-care (01) ==
LOC: RADMAMWWP 13:02
PROVIDERS: ATTEND Internal Medicine
DX: R92.322 Mammographic fibroglandular density, left breast (principal)
CPT/HCPCS: 77065; G0279; 77061

== ENCOUNTER → 2024-03-30 | Outpatient (CLI) | payer OTHER ==
--- NOTE | 2024-04-02 14:57 | MM ---
Reason for Exam: Screening (asymptomatic). Last mammogram was performed 1 year(s) and 3 month(s) ago. Patient History: Menarche at age 14. First Full-Term at age 24. Hysterectomy at age 34. Perimenopausal. 01/21/2023, Benign MG stereo VAD BX LT on the left side. 2005, Benign Ultrasound-Guided Core Biopsy on the left side. Risk Values: Harriet 5 year model risk: 1.4%. NCI Lifetime model risk: 11.7%. Prior Study Comparison: 01/05/2023 Bilateral MG 3D screening mammo w/cad, [facility]. 01/11/2023 Left MG 3D work up w/cad LT, [facility]. 09/14/2023 Left MG 3D diag mammo w/cad LT, [facility]. Tissue Density: There are scattered areas of fibroglandular density. Findings: Analyzed By CAD. Left breast biopsy clips. Right breast: There is no suspicious group of microcalcifications or new suspicious mass. Left breast: There is no suspicious group of microcalcifications or new suspicious mass. Overall Assessment: Negative, BI-RAD 1 Management: Screening Mammogram of both breasts in [address] [facility] will attempt to contact patient to return for supplemental views and ultrasound if indicated. Patient should continue monthly self-breast exams. A clinical breast exam by your physician is recommended on an annual basis. This exam should not preclude additional follow-up of suspicious palpable abnormalities. Note on Harriet scores and lifetime risk: 1. A Harriet score greater than 3% is considered moderate risk. If this is the case, consider specialist referral to assess eligibility for a risk reducing agent. 2. If overall lifetime risk for the development of breast cancer is 20% or higher, the patient may qualify for future screening with alternating mammogram and breast MRI. Electronically signed and approved by: Carlos Mena DO
== END | disposition home or self-care (01) ==
LOC: RADMAMWWP 12:46
PROVIDERS: ATTEND Internal Medicine
DX: Z12.31 Encounter for screening mammogram for malignant neoplasm of breast (principal)
CPT/HCPCS: 77063; 77067

== ENCOUNTER → 2024-12-25 | Outpatient (CLI) | payer OTHER ==
[2024-12-25 15:01] LABS: Influenza A Detected (Not Detectd); Influenza B Not Detected (Not Detectd); RSV Detected (Not Detectd)
== END | disposition home or self-care (01) ==
LOC: LABWHC1 14:08
PROVIDERS: ATTEND Family Medicine
DX: B89 Unspecified parasitic disease (principal)
CPT/HCPCS: 87636

== ENCOUNTER → 2025-04-29 | Outpatient (CLI) | payer OTHER ==
--- NOTE | 2025-04-29 14:28 | BD ---
EXAMINATION TYPE: Axial Bone Density DATE OF EXAM: 04/29/2025 CLINICAL HISTORY: 54 years old Female. ICD-10 CODE: Z78.0ASYMPTOMATIC MENOPAUSAL STATE , Additional History: Height: 62.2 in Weight: 183 lbs FRAX RISK QUESTIONS: Secondary Osteoporosis: 3. Menopause before 45: partial hysterectomy age 34 Current Tobacco Use: yes HISTORY OF: History of Wrist Fracture: age 13 lt wrist EXAM MEASUREMENTS: Bone mineral densitometry was performed using the [employer] System. Bone mineral density as measured about the Lumbar spine is: ----- L1-L4(G/cm2): 1.172 T Score Values are as follows: ----- L1: -0.3 ----- L2: -0.5 ----- L3: 0.1 ----- L4: 0.1 ----- L1-L4: -0.1 Z Score Values are as follows: ----- L1: -0.3 ----- L2: -0.5 ----- L3: 0.1 ----- L4: 0.1 ----- L1-L4: -0.1 Bone mineral density baseline Bone mineral density about the R hip (g/cm2): 0.945 Bone mineral density about the L hip (g/cm2): 0.964 T Score values are as follows: -----R Neck: -1.1 -----L Neck: -1.2 -----R Total: -0.5 -----L Total: -0.3 Z Score values are as follows: -----R Neck: -0.6 -----L Neck: -0.7 -----R Total: -0.4 -----L Total: -0.2 Bone mineral density baseline FRAX%s: The graph provided illustrates a 4.8% chance for a major osteoporotic fx and a 0.5% chance fo r the hips probability for fx in 10 years time. IMPRESSION: Osteopenia (T Score between -2.5 and -1) femoral neck level in both hips. There is slightly increased risk of fracture and the patient may be considered for treatment. Re-Screen 2-5 years. NOTE: T-SCORE=SD OF THE YOUNG ADULT MEAN. [facility], , 04/29/2025 2:26 PM
--- NOTE | 2025-05-01 09:25 | MM ---
Reason for Exam: Screening (asymptomatic). Last mammogram was performed 1 year(s) and 1 month(s) ago. Patient History: Menarche at age 14. First Full-Term at age 24. Hysterectomy at age 34. Perimenopausal. 01/21/2023, Benign MG stereo VAD BX LT on the left side. 2005, Benign Ultrasound-Guided Core Biopsy on the left side. Risk Values: Harriet 5 year model risk: 1.4%. NCI Lifetime model risk: 11.5%. Prior Study Comparison: 01/11/2023 Left MG 3D work up w/cad LT, [facility]. 09/14/2023 Left MG 3D diag mammo w/cad LT, [facility]. 03/30/2024 Bilateral MG 3D screening mammo w/cad, [facility]. Tissue Density: There are scattered areas of fibroglandular density. Findings: Analyzed By CAD. There are 2 biopsy clips in the left breast redemonstrated. Benign-appearing bilateral axillary lymph nodes are again seen. There is no suspicious group of microcalcifications or new suspicious mass in either breast. Overall Assessment: Incomplete: need additional imaging evaluation, BI-RAD 0 Management: Diagnostic Breast Ultrasound of the left breast. Targeted ultrasound left breast palpable abnormality. Patient should continue monthly self-breast exams. A clinical breast exam by your physician is recommended on an annual basis. This exam should not preclude additional follow-up of suspicious palpable abnormalities. Note on Harriet scores and lifetime risk: 1. A Harriet score greater than 3% is considered moderate risk. If this is the case, consider specialist referral to assess eligibility for a risk reducing agent. 2. If overall lifetime risk for the development of breast cancer is 20% or higher, the patient may qualify for future screening with alternating mammogram and breast MRI. [facility], , 04/29/2025 3:09 PM. Electronically signed and approved by: Stas Benedict M.D.
== END | disposition home or self-care (01) ==
LOC: RADBDWWP 13:36
PROVIDERS: ATTEND Family Medicine
DX: Z12.31 Encounter for screening mammogram for malignant neoplasm of breast (principal); Z78.0 Asymptomatic menopausal state; M85.89 Other specified disorders of bone density and structure, multiple sites; R92.323 Mammographic fibroglandular density, bilateral breasts
CPT/HCPCS: 77063; 77067; 77080

== ENCOUNTER → 2025-05-01 | Outpatient (CLI) | payer OTHER ==
--- NOTE | 2025-05-01 15:32 | USB ---
Patient History: Menarche at age 14. First Full-Term at age 24. Hysterectomy at age 34. Perimenopausal. 01/21/2023, Benign MG stereo VAD BX LT on the left side. 2005, Benign Ultrasound-Guided Core Biopsy on the left side. Risk Values: Harriet 5 year model risk: 1.4%. NCI Lifetime model risk: 11.5%. Technique: Method: Targeted. Prior Study Comparison: 09/14/2023 Left MG 3D diag mammo w/cad LT, [facility]. 03/30/2024 Bilateral MG 3D screening mammo w/cad, [facility]. 04/29/2025 Bilateral MG 3D screening mammo w/cad, [facility]. Findings: The medial section of the breast of the left breast, the axilla of the left breast and the retroareolar of the left breast were scanned. Targeted ultrasound. No solid or cystic masses are identified. No suspicious focal fluid collection. No concerning left axillary adenopathy. Overall Assessment: Negative, BI-RAD 1 Management: Screening Mammogram of both breasts in 1 year. Manage palpable clinically. Return to routine follow-up. A clinical breast exam by your physician is recommended on an annual basis and results should be correlated with mammographic findings. This exam should not preclude additional follow-up of suspicious palpable abnormalities. Results were given to the patient verbally at the time of exam. [facility], , 05/01/2025 3:29 PM. Electronically signed and approved by: Stas Benedict M.D.
== END | disposition home or self-care (01) ==
LOC: RADUSWWP 15:10
PROVIDERS: ATTEND Family Medicine
DX: R92.8 Other abnormal and inconclusive findings on diagnostic imaging of breast (principal)